=== PATIENT | male | born 1960 | race Caucasian/White ===

== ENCOUNTER 2023-08-26 11:39 | Outpatient (REF) | payer BC, SELFPAY ==
[2023-08-26 13:15] LABS: MANUAL DIFF FLAG NO
[2023-08-26 13:30] LABS: Basophils Absolute Auto 0.1 X10*3/uL (0.0-0.2); Basophils Percent Auto 1.7 % (0-2); Eosinophils Absolute Auto 0.1 X10*3/uL (0.0-0.4); Eosinophils Percent Auto 3.4 % (0-4); Hematocrit 43.3 % (42.0-52.0); Hemoglobin 14.6 g/dl (14.0-18.0); Imm Gran Abs Auto 0.01 X10*3/uL (0.00-0.03); Imm Gran Pct Auto 0.2 % (0.0-0.4); Lymphocytes Absolute Auto 1.6 X10*3/uL (1.2-4.9); Lymphocytes Percent Auto 39.1 % (20-40); Mean Corpuscular HGB Conc 33.7 g/dl (31.0-36.0); Mean Corpuscular Hemoglobin 31.5 pg (27.0-33.0); Mean Corpuscular Volume 93.5 fL (80.0-98.0); Mean Platelet Volume 10.7 fL (9.4-12.4); Monocytes Absolute Auto 0.4 X10*3/uL (0.1-1.2); Monocytes Percent Auto 8.9 % (2-11); Neutrophils Absolute Auto 1.9 x10*3/uL (2.0-8.3); Neutrophils Percent Auto 46.7 % (45-73); Platelet Count 223 X10*3/uL (160-400); Red Blood Count 4.63 X10*6/uL (4.60-5.80); Red Cell Distribution Width 12.9 % (11.0-16.0); White Blood Count 4.1 X10*3/uL (4.8-10.8)
[2023-08-26 13:56] LABS: Alanine Aminotransferase 37 U/L (0-40); Albumin Level 4.5 g/dL (3.5-5.0); Alkaline Phosphatase 60 U/L (39-117); Anion Gap 11 (12-20); Aspartate Amino Transferase 27 U/L (5-37); Bilirubin Total 0.9 mg/dL (0.0-1.0); Blood Urea Nitrogen 12 mg/dL (9-16); Calcium 9.4 mg/dL (8.4-10.2); Carbon Dioxide 25 mmol/L (22-29); Chloride 106 mmol/L (96-108); Cholesterol 233 mg/dL (<200); Estimated Glomerular Filt Rate > 60; Glucose Fasting 105 mg/dL (60-99); HDL Cholesterol 49 mg/dL (>40); LDL Cholesterol Calculated 142 mg/dL (<100); Potassium 4.1 mmol/L (3.3-5.1); Sodium 138 mmol/L (135-145); Total Protein 7.1 g/dL (6.5-8.0); Triglycerides 214 mg/dL (<150)
[2023-08-26 15:09] LABS: Estimated Average Glucose 105 mg/dL; Hemoglobin A1c % 5.3 % (<6.0)
== END 2023-08-26 11:40 | disposition home or self-care (01) ==
LOC: HO.10HDL 11:39
PROVIDERS: Visit Provider Internal Medicine
DX: K57.90 Diverticulosis of intestine, part unspecified, without perforation or abscess without bleeding (principal)
CPT/HCPCS: 36415; 80053; 80061; 83036; 85025

== ENCOUNTER 2024-04-07 07:56 | Day surgery (SDC) | payer BC, SELFPAY ==
[2024-04-05 15:19] VITALS: BMI 32.7
--- NOTE | 2024-04-06 10:19 | HO.ANESPROP2 ---
Documented by User: Palak Escamilla NP 04/06/24 10:19 HPI - Anesthesia Eval Consult details Narrative: 63yo M for Colonoscopy [facility] Past Medical History Medical History Hx of diverticulitis of colon BPH (benign prostatic hyperplasia) Surgical History Surgical History Hx of colonoscopy (~2012) History of bowel resection (~2014) Hx of knee surgery (~1988) Social History Social History Are you a primary healthcare associate to a significant other at home: No Do you presently have visiting nurse or other home services: No Patient Tobacco Use Status: Never used Tobacco Use of substances other than those prescribed or required for medical reasons: No Have you been hit, kicked, punched, or otherwise hurt by someone within the past year? If so, by whom?: No Are you DNR?: No Advance Directives: No Advance Directives Information Provided: Yes Recently lost weight without trying: No Nutrition Risks: No Nutritional Risk Meds Allergies Allergy/AdvReac Type Severity Reaction Status Date / Time No Known Allergies Allergy Verified 04/07/24 07:52 [No Known Allergies*] Home Medications ?Medication ?Instructions ?Recorded ?Confirmed ?Last Taken ?Type finasteride 5 mg tablet 5 mg PO DAILY 04/05/24 04/05/24 Unknown History tamsulosin 0.4 mg capsule 0.4 mg PO BEDTIME 04/05/24 04/05/24 Unknown History Exam Height,Weight and Vital Signs: Height 6 ft 1 in Weight 112.491 kg Assessment and Plan Assessment Anesthesia Assessment: Chart Reviewed Documented by User: Lisa Becker MD 04/07/24 08:53 [facility] Past Medical History Medical History Hx of diverticulitis of colon BPH (benign prostatic hyperplasia) Family History Family history of problems with anesthesia: No Surgical History Surgical History Hx of colonoscopy (~2012) History of bowel resection (~2014) Hx of knee surgery (~1988) History of Problems with Anesthesia: No Social History Social History Are you a primary healthcare associate to a significant other at home: No Do you presently have visiting nurse or other home services: No Patient Tobacco Use Status: Never used Tobacco Use of substances other than those prescribed or required for medical reasons: No Have you been hit, kicked, punched, or otherwise hurt by someone within the past year? If so, by whom?: No Are you DNR?: No Advance Directives: No Advance Directives Information Provided: Yes Recently lost weight without trying: No Nutrition Risks: No Nutritional Risk Meds Allergies Allergy/AdvReac Type Severity Reaction Status Date / Time No Known Allergies Allergy Verified 04/07/24 07:52 [No Known Allergies*] Home Medications ?Medication ?Instructions ?Recorded ?Confirmed ?Last Taken ?Type finasteride 5 mg tablet 5 mg PO DAILY 04/05/24 04/05/24 Unknown History tamsulosin 0.4 mg capsule 0.4 mg PO BEDTIME 04/05/24 04/05/24 Unknown History Exam Airway Mallampati Class: II TM Dist: >3cm Neck ROM: Full Assessment and Plan Assessment Anesthesia Assessment: Anesthesia Plan Discussed Final Anesthetic Review Family History of Problems with Anesthesia: No History of Problems with Anesthesia: No NPO: Yes ASA Class: II Final Preanesthetic Review: No Changes in Pt Med Stat, Meds/Allgs Chart Reviewed, Consent Obtained/Reviewed and Anes Risks/Benef Reviewed Patient Risk: Low Procedure Risk: Low Anesthetic Plan Anesthetic Plan: TIVA Disposition: Standard PACU
[2024-04-07 08:05] VITALS: BMI 33.1
[2024-04-07 08:24] VITALS: BP 149/80; PULSE 62; RESP 18; TEMP 35.8; O2SAT 97
[2024-04-07] MEDS: Lactated Ringers 1,000 ML 100 ML IVCONT (08:32)
[2024-04-07 10:27] VITALS: BP 109/57; PULSE 61; RESP 18; TEMP 36.6; O2SAT 98
--- NOTE | 2024-04-07 10:29 | PM.OP ---
Brief Operative Note Date of Service: 04/07/24 Pre-op diagnosis: Screening Post-op diagnosis: other (Colon polyps) Procedure: Colonoscopy to the cecum with cold snare polypectomy x 2 Surgeon: Negro Kenyon MD Anesthesia: MAC Was an Applications Consultant used for this Procedure?: No Estimated blood loss (mL): 2.0 Pathology: other (A. Polyp at 40cm B. Polyp at 20cm) Condition: stable Disposition: PACU
[2024-04-07 10:41] VITALS: BP 123/68; PULSE 66; RESP 16; TEMP 36.6; O2SAT 95
--- NOTE | 2024-04-07 10:49 | OP_ITS ---
DATE OF SERVICE: 04/07/2024 SURGEON: Negro Kenyon MD INDICATIONS: The patient presents for evaluation of colorectal cancer screening. Full consent has been obtained from him for this, including risks of bleeding and perforation. PREOPERATIVE DIAGNOSIS: Colorectal cancer screening. POSTOPERATIVE DIAGNOSIS: PROCEDURE PERFORMED: Colonoscopy to the cecum with cold snare polypectomy x2. ESTIMATED BLOOD LOSS: COMPLICATIONS: ANESTHESIA: Medication used, monitored anesthesia care. ASSISTANTS: SPECIMENS: POSTOPERATIVE DIAGNOSES: Colorectal cancer screening, colon polyps, mild diverticulosis, internal hemorrhoids. DESCRIPTION OF PROCEDURE: The patient was placed in the left lateral decubitus position. The digital rectal exam revealed no abnormalities. The Olympus video pediatric colonoscope was entered into the rectum and advanced easily to the cecum. Once in the cecum, I did identify normal-appearing cecal pouch with appendiceal orifice, a normal-appearing ileocecal valve. The entire cecum and ileocecal valve appeared normal. The scope was then slowly withdrawn assessing all mucosal surfaces carefully. Preparation was excellent. At 20 cm and at 40 cm were approximately 5 mm or 6 mm polyps, which were both removed by cold snare polypectomy, recovered by suction. Both polypectomy sites appeared clean, without any sign of residual polyp nor significant bleeding. I did not visualize any other polyps, colitis, nor angiodysplasia. Several diverticula were noted in the descending colon. I did not visualize a definitive anastomosis from his previous surgery. In the rectum, scope was retroflexed visualizing internal hemorrhoids, but no other pathology. The rectal mucosa appeared normal. Scope was straightened and withdrawn from the patient. He tolerated the procedure well and was returned to recovery area in stable condition. IMPRESSION: 1. Colon polyps. 2. Mild diverticulosis. 3. Internal hemorrhoids. PLAN: The results of the pathology will be checked. I would recommend a repeat colonoscopy in 5 years if these are tubular adenomas. They are both hyperplastic, I would recommend a followup colonoscopy in 10 years. He was advised not to use any aspirin or NSAIDs for 1 week. MD ROZ Ferguson/UNRULY / [id number]
== END 2024-04-07 10:55 | disposition home or self-care (01) ==
PROVIDERS: PCP Internal Medicine; Visit Provider Internal Medicine
PROC: 0DJD8ZZ Inspection of Lower Intestinal Tract, Via Natural or Artificial Opening Endoscopic (ICD-10-PCS; CPT 45378; principal; 2024-04-07 09:20)
DX: Z12.11 Encounter for screening for malignant neoplasm of colon (principal); D12.5 Benign neoplasm of sigmoid colon; K57.30 Diverticulosis of large intestine without perforation or abscess without bleeding; K64.8 Other hemorrhoids; N40.0 Benign prostatic hyperplasia without lower urinary tract symptoms; Z79.899 Other long term (current) drug therapy; Z87.19 Personal history of other diseases of the digestive system; Z90.49 Acquired absence of other specified parts of digestive tract; Z98.890 Other specified postprocedural states
CPT/HCPCS: 45385; 88305; J2003; J2704

== ENCOUNTER 2024-12-20 13:39 | Outpatient (AMB) | payer BC, SELFPAY ==
--- OUTSIDE RECORDS SUMMARY | 2024-04-07 05:20 | XMS_ITS ---
Author Organization [facility] Address [address] [place] [id number] Care Team Providers Care Prosthetic Makeup Designer Name Role Phone Radha (RETIRED) Juancho CORRIGAN Primary Care Provide Negro Swartz Unavailable [phone] REASON FOR VISIT screening Problems Problem Type SNOMED Code ICD Code Onset Dates Problem Status W/U Status Risk Notes Problem Diverticulosis o f large intestine without perforation or abscess without bleeding (K57.30) Active confirmed Encounters Encounter Location Date Provider Diagnosis [facility] [address] [place] [phone] 04/07/2024 Negro Kenyon Colon cancer scree zac Z12.11 ; Colon polyps K63.5 ; Diverticulosis of large intestine without perforation or abscess without bleeding K57.30 and Other hemorrhoids K64.8 Assessments Encounter Date Diagnosis (ICD Code) Assessment Notes Treatment Notes Treatment Clinical Notes Section Notes 04/07/2024 Colon cancer screening (ICD-10 - Z12.11) 04/07/2024 Colon polyps (ICD-10 - K63.5) 04/07/2024 Diverticulosis of large intestine without perforation or abscess without bleeding (ICD-10 - K57.30) 04/07/2024 Other hemorrhoids (ICD-10 - K64.8) Plan Of Treatment No Information Progress Notes * SILVANO HAMMONDDOB:1960 ( 64 yo M)Acc No.[id number]:04/07/2024 COLON WITH MAC Patient: Kendal GERARDSILVANO ANTONIO Provider: Aixa Kenyon MD :1960 A ge:63 Y S ex:Male Date:04/07/2024 Address:[facility] [facility] Pcp:Juancho Garcia (RETIRED )MD Subjective: * Chief Complaints: * 1 . Screening. * Medical History: Objective: * Vitals: Assessment: * Assessment: 1. C olon cancer screening - Z12.11 (Primary) 2 . C olon polyps - K63.5? 3. D iverticulosis of large intestine without perforation or abscess without bleeding - K57.30 4 . O ther hemorrhoids - K64.8 Plan: * Treatment: * Procedure Codes: 4 5385 LESION REMOVAL COLONOSCOPY, Modifiers: PT * * The named appointment provid er may or may not be the originator of this progress note, and it is not deemed complete until electronically signed by the appointment provider. Sign off status: Pending * Provider: Aixa Keynon MD Date: 1 06/08/2023 Generated for Adebayo godinez/Lady/Jerricaitting on: 0 12/20/2024 02:58 PM EDT
--- NOTE | 2024-12-20 13:44 | A.OFFPC_ITS ---
Vital Signs 12/20/24 13:45 Height 6 ft 1 in Weight 258 lb BMI 34.0 BP 120/74 Blood Pressure Location Rt brachial Position Sitting Respiration 16 Pulse 68 Pulse Source Pulse Oximeter Temp 97.4 F Temp Source Temporal Artery Scan Pulse Oximetry (%) 97 Oxygen Delivery Method Room Air Intake Visit Reasons: Annual / POV / Dr Garcia - see comments Hotel Lobby Concierge Required: No Accompanied by: Self / Same As Patient Allergies No Known Allergies (No Known Allergies*) Allergy (Verified 12/20/24 13:44) Tobacco use date assessed: 12/20/24 HPI HPI Comments History of Present Illness The patient is a 64-year-old male presenting for a wellness visit. He reports being generally healthy with no active medical conditions. Approximately five years ago, he experienced a perforated colon necessitating surgical intervention. The specifics surrounding the cause remained undetermined. He also experiences urinary symptoms for which he is currently on medications. He denies any current gastrointestinal symptoms such as nausea, vomiting, diarrhea, constipation, or blood in the stool. Medical History: - History of BPH Surgical History: - Surgery for perforated colon Medications: - Finasteride for benign prostatic hyper plasia - Tamsulosin for urinary symptoms Family History: - Denies family history of cancer [facility] Medical History (Updated 12/20/24 @ 14:08 by Wolf Finnegan MD) Diverticula of colon Healthcare maintenance Hx of diverticulitis of colon BPH (benign prostatic hyperplasia) Surgical History (Updated 12/20/24 @ 14:08 by Wolf Finnegan MD) Hx of colonoscopy (~2012) History of bowel resection (~2014) Hx of knee surgery (~1988) Social History Are you a primary care attendant to a significant other at home: No Do you presently have visiting nurse or other home services: No Patient Tobacco Use Status: Never used Tobacco e-Cigarette/Vaping Use: Never Used Questionnaire PHQ-9 Over the last 2 weeks, how often have you been bothered by any of the following problems? 1. Little interest or pleasure in doing things: not at all 2. Feeling down, depressed, or hopeless: not at all 3. Trouble falling or staying asleep, or sleeping too much: not at all 4. Feeling tired or having little energy: not at all 5. Poor appetite or overeating: not at all 6. Feeling bad about yourself - or that you are a failure or have let yourself or your family down: not at all 7. Trouble concentrating on things, such as reading the newspaper or watching television: not at all 8. Moving or speaking so slowly that other people could have noticed. Or the o pposite - being so fidgety or restless that you have been moving around a lot more than usual: not at all 9. Thoughts that you would be better off or of hurting yourself in some way: not at all Total score: 0 Depression Screening Interpretation: Negative Depression Screening Done: Yes 25803 - PHQ-9 Billing: Yes Source: Developed by Drs. Negro Griffith, Garrett Abdi and colleagues, with an educational suzanna from [employer]. AUDIT C Alcohol Use Questionnaire (AUDIT-C) 1. How often do you have a drink containing alcohol?: 2-4 times a month 2. How many drinks containing alcohol do you have on a typical day when you are drinking?: 1 or 2 3. How often do you have six or more drinks on one occasion?: Never Total Score: 2 Score Reviewed/Action Taken: Yes MIGUEL-7 AMB Questionnaire MIGUEL-7 Date MIGUEL - 7 assessed: 12/20/24 Feeling nervous, anxious, or on edge: 0 = Not at all Not being able to stop or control worryin = Not at all Worrying too much about different things: 0 = Not at all Trouble relaxin = Not at all Being so restless that it is hard to sit still: 0 = Not at all Becoming easily annoyed or irritable: 0 = Not at all Feeling afraid as if something awful might happen: 0 = Not at all Total MIGUEL-7 score (0-4 normal; 5-9 mild; 10-14 moderate; 15-21 severe): 0 Source: Developed by Drs. Negro Griffith, Garrett Abdi and colleagues, with an educational suzanna from [employer]. MIGUEL-7 Assessment Billing MIGUEL-7 Assessment Tool: MIGUEL-7 Assessment 77768 Review of Systems Const Details: - Gastrointestinal: Denies nausea, vomiting, diarrhea, constipation, or blood in stool - Musculoskeletal: Denies joint pain - Neurological: Denies headaches - Psychiatric: Denies anxiety, depression, or sleep disturbances - Eyes: Denies vision problems - Hearing: Denies hearing issues All systems reviewed & are unremarkable except as noted in HPI and below Physical exam (Primary Care) Vital Signs: Last Vital Signs Temp 97.4 F 12/20/24 13:45 Pulse 68 12/20/24 13:45 Resp 16 12/20/24 13:45 BP 120/74 12/20/24 13:45 Pulse Ox 97 12/20/24 13:45 Oxygen Delivery Method Room Air 12/20/24 13:45 BMI result Body Mass Index 34.0 Tobacco/Smoking Status: Tobacco use Status Tobacco use date assessed 12/20/24 12/20/24 13:47 Patient Tobacco Use Status Never used Tobacco 12/20/24 13:47 e-Cigarette/Vaping Use Never Used 12/20/24 13:47 Depression Screening Interpretation: Negative Const Other: General: Alert and oriented, Well nourished, No acute distress. Eye: Pupils are equal, round and reactive to light, Intact accommodation, Extraocular movements are intact, Normal conjunctiva, Vision unchanged. HENT: Normocephalic, Atraumatic, Tympanic membranes are clear, Normal hearing, Oral mucosa is moist, No pharyngeal erythema, Ear canals patent. Respiratory: Lungs CTA bilaterally, No wheeze, Respirations are non-labored. Cardiovascular: Regular rate, Regular rhythm, S1 auscultated, S2 auscultated, No murmur, Good pulses equal in all extremities, Normal peripheral perfusion, No edema. Gastrointestinal: Soft, Non-tender, Non-distended, Normal bowel sounds, No organomegaly. Musculoskeletal: Normal range of motion, Normal strength, No tenderness, No swelling, No deformity, Normal gait. Integumentary: Warm, Dry, [place], Intact. Neurologic: Alert, Oriented, Normal sensory, Normal motor function, No focal defects, Cranial Nerves II-XII are grossly intact, Normal deep tendon reflexes. Psychiatric: Cooperative, Appropriate mood & affect, Normal judgment. Coding Level of Care Code Est Pt Level 3 (22072) Diagnoses Healthcare maintenance Z00.00 Benign prostatic hyperplasia N40.0 History of bowel resection Z90.49 Additional Codes MIGUEL-7 Assessment Billing - MIGUEL-7 Assessment Tool: MIGUEL-7 Assessment 14033 ([id number]) PHQ-9 - 28300 - PHQ-9 Billing: Yes ([id number]) Assessment & Plan Assessment & Plan (1) Healthcare maintenance: Comment: - Order baseline labs and will follow up in 6 months Code(s): Z00.00 - Encounter for general adult medical examination without abnormal findings Category: Medical Plan: - Order CBC, CMP, TSH, A1c (2) Benign prostatic hyperplasia: Code(s): N40.0 - Benign prostatic hyperplasia without lower urinary tract symptoms Plan: Currently on finasteride and tamsulosin with no symptoms. Reports he has no nightly awakenings and has a good urinary stream. We will continue on same medications for now (3) History of bowel resection: Onset Date: ~2014 Comment: History of bowel resection after perforated diverticulosis. Recent colonoscopy reviewed with next colonoscopy is scheduled for 2028 Code(s): Z90.49 - Acquired absence of other specified parts of digestive tract Category: Surgical Plan - Blood work has been ordered to assess cholesterol, thyroid function, vitamin D, and glucose control with HbA1c. - Continue finasteride and tamsulosin as per current prescription for management of urinary symptoms. - Follow-up in six months to discuss results of blood work and to monitor overall health status. Patient was informed and verbally consented to the use of an ambient scribe for clinic note documentation during this visit. Orders: Orders TSH reflex Free T4 Today N40.0 - Benign prostatic hyperplasia without lower ur inary tract symptoms, Z00.00 - Encounter for general adult medical examination without abnormal findings Comprehensive Met. Panel Today N40.0 - Benign prostatic hyperplasia without lower urinary tract symptoms, Z00.00 - Encounter for general adult medical examination without abnormal findings Lipid Panel Today N40.0 - Benign prostatic hyperplasia without lower urinary tract symptoms, Z00.00 - Encounter for general adult medical examination without abnormal findings Hemoglobin A1c Today N40.0 - Benign prostatic hyperplasia without lower urinary tract symptoms, Z00.00 - Encounter for general adult medical examination without abnormal findings Complete Blood Count Auto Diff Today N40.0 - Benign prostatic hyperplasia without lower urinary tract symptoms, Z00.00 - Encounter for general adult medical examination without abnormal findings Medications: Discontinued azithromycin Discontinued Reason: Patient Completed Course take 500 mg today (day 1), then 250 mg for 4 days (days 2-5) PO 6 tabs 0RF Patient Instructions: During the visit, I discussed the patient's overall good health and the importance of continuing his current healthy lifestyle practices, such as regular exercise and moderate alcohol consumption. We reviewed his use of finasteride and tamsulosin for urinary symptoms, affirming they are managing the condition well. I informed him about the necessary routine blood work to monitor his risk for future health issues, such as cardiovascular disease, and advised regular follow-ups every six months. I reassured the patient that his heart and lung examinations were normal, with no current concerns. I explained the importance of a colonoscopy schedule due to his previous colon issue and that he is due for another check in five years, provided there are no new symptoms. - Maintain regular physical activity as advised. - Continue using prescribed medications, finasteride and tamsulosin. - Attend follow-up visits every six months for health monitoring. - Undergo recommended blood tests to check cholesterol, thyroid, vitamin D, and glucose levels. - Seek medical attention if new symptoms such as abdominal pain or changes in bowel habits develop. - Limit alcohol intake to moderate levels as previously discussed.
[2024-12-20 13:45] VITALS: BP 120/74; PULSE 68; RESP 16; TEMP 36.3; O2SAT 97; BMI 34.0
--- OUTSIDE RECORDS SUMMARY | 2024-12-20 14:58 | XMS_ITS ---
Author Name [facility] Organization Unknown Care Team Organization Name Specialty Phone Email Start Date End Da te [facility] Gudelia Steele Primary Care 07/03/20222023 [facility] Beatriz Frye Primary Care 03/05/20222023
--- OUTSIDE RECORDS SUMMARY | 2024-12-20 14:58 | XMS_ITS | Clinical Summary ---
Author Organization [facility] ity Address [address] [place] [address] Care Team Providers Care Rat Breeder Name Role Phone Unavailable Primary Care Provider Unavailabl e Social History Tobacco Use Types Packs/Day Years Used Date Smoking Tobacco: Never Assessed Sex and Gender Information Value Date Recorded Sex Assigned at Not on file Legal Sex Male 2:11 PM EST Gender Identity Not on file Sexual Orientation Not on file Plan of Treatment Health Maintenance Due Date Last Done Comments DTaP,Tdap,and Td Vaccines (1 - Tdap) 11/22/1978 Pneumococcal Vaccine: 50+ Ye ars (1 of 1 - PCV) 11/22/2009 Zoster Vaccines (1 of 2) 11/22/2009 Abdominal Aortic Aneurysm (A AA) Screen 03/27/2022 Cholesterol Screening (Lipid Panel) 03/27/2022 Colorectal Cancer Screening: Colonoscopy 03/27/2022 Hepatitis C Screening 03/27/2022 Social Influencers of Health Screening 03/27/2022 COVID-19 Vaccine (1 - 2023-2 5 season) 2023 Depression Screening 04/28/2024 Falls Risk Assessment 11/22/2024 Influenza Vaccine (#1) 2024 RSV Immunization Adult Patie nts (1 - 1-dose 75+ series) 11/22/2034 HIB Vaccines Aged Out No longer eligi ble based on patient's age to complete this topic HPV Vaccines Aged Out No longer eligi ble based on patient's age to complete this topic Hepatitis A Vaccines Aged Out No long er eligible based on patient's age to complete this topic Hepatitis B Vaccines Aged Out No long er eligible based on patient's age to complete this topic IPV Vaccines Aged Out No longer eligi ble based on patient's age to complete this topic MMR Vaccines Aged Out No longer eligi ble based on patient's age to complete this topic Meningococcal ACWY Vaccine Aged Out N o longer eligible based on patient's age to complete this topic Meningococcal B Vaccine Aged Out No l onger eligible based on patient's age to complete this topic RSV Immunization Patients Un natalio 20 months Aged Out No longer eligible b ased on patient's age to complete this topic Varicella Vaccines Aged Out No longer eligible based on patient's age to complete this topic
--- OUTSIDE RECORDS SUMMARY | 2024-12-20 14:59 | XMS_ITS | Patient Health Record ---
Author Organization [facility] Address [address] [place] [address] Care Team Providers Care Esl Professor Name Role Phone Radha (RETIRED) Juancho CORRIGAN Primary Care Provide r Unavailable Negro Kenyon Unavailable [phone] Allergies No Known Allergies Results Component Value Reference Range Notes Pathology (Not yet reviewed by provider) Interpretation: Performing Lab:[facility], [address] [place] [id number] Notes/Report: Reason For Referral No Information Medications Medication SIG (Take, Route, Frequency, Duration) Notes Start Date End Date Status Tamsulosin HCl 0.4 MG TAKE 1 CAPSULE FRANCISCO RY NIGHT AT BEDTIME Oral for 90 Active Finasteride 5 MG TAKE 1 TABLET BY RITA TH EVERY DAY Oral for 90 Active Advil 200 MG 1 tablet with food o r milk as needed Orally Three times a day Not-Taking Problems Problem Type SNOMED Code ICD Code Onset Dates Problem Status W/U Status Risk Notes Problem Colon cancer screening (363013709) Colon cancer screening (Z12.11) Active confirmed Problem Pre-procedure evaluation check (368637319) Encounter for other preprocedural examination (Z01.818) Active confirmed Problem Diverticular disease of colon (706730012) Diverticulosis of large intestine without perforation or abscess without bleeding (K57.30) Active confirmed Vital Signs Blood pressure diastolic 00 mm Hg 12/30/2023 Height 73 in 12/30/2023 Blood pressure systolic 00 mm Hg 12/30/2023 Weight 248 lbs 12/30/2023 BMI 32.72 kg/m2 12/30/2023 Encounters Encounter Location Date Provider Diagnosis [facility] [place] [facility] [address], [place] [id number] 04/07/2024 Negro Kenyon Colon cancer screeni ng Z12.11 ; Colon polyps K63.5 ; Diverticulosis of large intestine without perforation or abscess without bleeding K57.30 and Other hemorrhoids K64.8 [facility] [address] [place] [address] 12/30/2023 Negro Kenyon Colon cancer screeni ng Z12.11 and Encounter for other preprocedural examination Z01.818 Assessments Encounter Date Diagnosis (ICD Code) Assessment Notes Treatment Notes Treatment Clinical Notes Section Notes 04/07/2024 Colon cancer screening (ICD-10 - Z12.11) 04/07/2024 Colon polyps (ICD-10 - K63.5) 12/30/2023 Colon cancer screening (ICD-10 - Z12.11) Overall, Silvano appears quite well. Given his age, good clinical appearance, and his last colonoscopy being over 10 years ago, I did recommend a followup colonoscopy for screening purposes. We did review the rationale for that regard to colon cancer prevention. Full consent is obtained for this, including risks of bleeding and perforation. The procedure will be done with monitored anesthesia care. Silvano was comfortable with this plan. Thank you again for allowing me to participate in Silvano's care. I shall continue to keep you advised of his progress. 12/30/2023 Encounter for other preprocedural examination (ICD-10 - Z01.818) Overall, Silvano appears quite well. Given his age, good clinical appearance, and his last colonoscopy being over 10 years ago, I did recommend a followup colonoscopy for screening purposes. We did review the rationale for that regard to colon cancer prevention. Full consent is obtained for this, including risks of bleeding and perforation. The procedure will be done with monitored anesthesia care. Silvano was comfortable with this plan. Thank you again for allowing me to participate in Silvano's care. I shall continue to keep you advised of his progress. 04/07/2024 Diverticulosis of large intestine without perforation or abscess without bleeding (ICD-10 - K57.30) 04/07/2024 Other hemorrhoids (ICD-10 - K64.8) Plan Of Treatment Pending Test Test Name Order Date Pathology 04/07/2024 Future Test Test Name Order Date COLONOSCOPY 07/23/2012 COLONOSCOPY 12/30/2023 Insurance Providers Payer Name Payer Address Payer Phone Subscriber Number Group Number Insured Name Patient Relationship to Insured Coverage Start Date Coverage End Date [facility] [employer] [address] [place] [address] [id number] SILVANO HAMMOND Self - patient is the insured Medical (General) History Medical History History ICD Code Denies OK,DM,CVA,Lung disease,renal dise ase BPH Surgical History Surgery Date(Month/Year) Knee surgery 1988 Perforated colon with temporary colostom y--Dr. Epps 2014
== END 2024-12-20 15:22 | disposition home or self-care (01) ==
LOC: HO.HMCHD 13:40
PROVIDERS: PCP Student in an Organized Health Care Education/Training Program; Visit Provider Student in an Organized Health Care Education/Training Program
DX: Z00.00 Encounter for general adult medical examination without abnormal findings (principal); N40.0 Benign prostatic hyperplasia without lower urinary tract symptoms; Z90.49 Acquired absence of other specified parts of digestive tract

== ENCOUNTER → 2024-12-20 13:39 | Outpatient (BNVA) | payer BC, SELFPAY | PROVIDERS: PCP Internal Medicine; Visit Provider Student in an Organized Health Care Education/Training Program | DX: Z00.00 Encounter for general adult medical examination without abnormal findings (principal); N40.0 Benign prostatic hyperplasia without lower urinary tract symptoms; Z90.49 Acquired absence of other specified parts of digestive tract; Z13.31 Encounter for screening for depression; Z13.39 Encounter for screening examination for other mental health and behavioral disorders | CPT/HCPCS: 96127 ==